=== PATIENT | female | born 1960 | race Caucasian/White ===

== ENCOUNTER 2019-04-27 18:36 | Emergency (ER) | payer OTHER ==
[~2019-04-27] VITALS: Ht 157.5 cm; Wt 85.7 kg
[~2019-04-27 18:36] MED LIST: [UNRECOGNIZED DRUG - OTHER]; [UNRECOGNIZED DRUG - OTHER]; [UNRECOGNIZED DRUG - OTHER]
[2019-04-27 18:40] VITALS: BP 154/86
--- NOTE | 2019-04-27 19:18 | NUR ---
PATIENT AMB TO [facility].
--- NOTE | 2019-04-27 19:25 | NUR ---
BIB SELF REPORTS SUDDEN ONSET OF SHARP ACHING LOWER BACK PAIN STARTING YESTERDAY. DENIES INJURY. STATES SHE DOES NOT HAVE ANY URINARY SYMPTOMS. PATIENT DENIES RESP SYMPTOMS AT THIS TIME. AMB WITH STEADY GAIT.
--- NOTE | 2019-04-27 19:30 | NUR ---
KAREN BARRON WITH PT
[2019-04-27] MEDS ORDERED: KETOROLAC 30 MG/ML VIAL ONE (19:39)
[2019-04-27] MEDS ORDERED: KETOROLAC 30 MG/ML VIAL IM ONE (19:40)
--- NOTE | 2019-04-27 20:13 | NUR ---
PATIENT STATES IMPROVED PAIN AFTER TORADOL.
[2019-04-27 20:33] VITALS: BP 148/80
== END 2019-04-27 20:33 | disposition home or self-care (01) ==
LOC: MED 18:36
DX: S39.012A Strain of muscle, fascia and tendon of lower back, initial encounter (principal); M51.36 Other intervertebral disc degeneration, lumbar region; E11.9 Type 2 diabetes mellitus without complications; K21.9 Gastro-esophageal reflux disease without esophagitis; I10 Essential (primary) hypertension; E78.5 Hyperlipidemia, unspecified; Z90.49 Acquired absence of other specified parts of digestive tract; Z98.890 Other specified postprocedural states; Z79.899 Other long term (current) drug therapy; X58.XXXA Exposure to other specified factors, initial encounter; Y93.89 Activity, other specified; Y92.89 Other specified places as the place of occurrence of the external cause; Y99.8 Other external cause status
CPT/HCPCS: 72110; 81002; 96372; 99283; J1885

== ENCOUNTER 2023-11-21 22:05 | Inpatient (IN) | payer BC, OTHER ==
[~2023-11-21] VITALS: Ht 162.6 cm; Wt 90.7 kg
[2023-11-21 22:11] VITALS: BP 197/94; PULSE 106; RESP 17; TEMP 98; O2SAT 98; O2SAT 99
[2023-11-21 22:34] LABS: BASOPHILS % (AUTO) 0.4 % (0.0-2.0); EOSINOPHILS # (AUTO) 0.3 K/uL (0-0.4); EOSINOPHILS % (AUTO) 3.3 % (0.0-4.0); LYMPHOCYTES # (AUTO) 4.1 K/uL (2.5-16.5); LYMPHOCYTES % (AUTO) 48.2 % (20.5-51.1); MEAN CORPUSCULAR HEMOGLOBIN 29 pg (27-31); MEAN CORPUSCULAR HGB CONC 34 g/dL (33-37); MEAN CORPUSCULAR VOLUME 86.7 fL (80-94); MONOCYTES # (AUTO) 0.6 K/uL (0.8-1.0); MONOCYTES % (AUTO) 7.6 % (1.7-9.3); NEUTROPHILS # (AUTO) 3.4 K/uL (1.8-7.7); NEUTROPHILS % (AUTO) 40.5 % (42.2-75.2); PLATELET COUNT (AUTO) 267 K/uL (140-450); RED BLOOD CELL COUNT(AUTO) 4.84 MIL/uL (4.20-5.40); RED CELL DISTRIBUTION WIDTH 14.2 % (11.6-13.7); WHITE BLOOD COUNT (AUTO) 8.5 K/uL (4.8-10.8)
[2023-11-21] MEDS: PANTOPRAZOLE 40 MG INJ VIAL IVP ONE (22:48)
[2023-11-21 22:52] LABS: INR 0.92 (0.8-1.2); PARTIAL THROMBOPLASTIN TIME 25.6 secs (22-35.6); PROTHROMBIN TIME 9.7 secs (10.8-13.4)
[2023-11-21] MEDS: MORPHINE SULFATE 4 MG/ML SYR IVP ONE (22:52)
[2023-11-21 23:00] LABS: ANION GAP 13.1 (8-16); CALCIUM 9.1 mg/dL (8.5-10.1); CARBON DIOXIDE 27.4 mmol/L (21-32); POTASSIUM 3.5 mmol/L (3.5-5.1)
[2023-11-21 23:02] LABS: ALANINE AMINOTRANSFERASE 22 U/L (12-78); ALBUMIN 3.7 g/dL (3.4-5.0); ALKALINE PHOSPHATASE 98 U/L (50-136); ASPARTATE AMINOTRANSFERASE 3 U/L (15-37); BILIRUBIN,DIRECT 0.1 mg/dL (0.0-0.3); TOTAL BILIRUBIN 0.3 mg/dL (0.0-1.0); TOTAL PROTEIN, SERUM 7.4 g/dL (6.4-8.2)
[2023-11-22] VITALS (7 sets, daily range): BP systolic 130–211; BP diastolic 65–111; PULSE 61–117; RESP 18–20; TEMP 97.3–98.4; O2SAT 95–100
[2023-11-22] MEDS: ASPIRIN 325 MG TAB PO ONE (02:29)
[2023-11-22] MEDS ORDERED: ONDANSETRON 4 MG/2 ML VIAL IVP PRN (02:35)
[2023-11-22] MEDS ORDERED: ALBUTEROL 0.083% 2.5 MG/3 ML NEBU INH PRN (02:35)
[2023-11-22] MEDS ORDERED: hydrALAZINE 20 MG/ML VIAL IVP PRN (02:35)
[2023-11-22] MEDS ORDERED: MORPHINE SULFATE 2 MG/ML SYR IVP PRN (02:35)
[2023-11-22] MEDS ORDERED: METF-1139 PO (03:14)
[2023-11-22] MEDS ORDERED: LOSA-272 PO (03:14)
[2023-11-22] MEDS ORDERED: ATOR10TA PO (03:14)
[2023-11-22] MEDS ORDERED: FAMO-90 PO (03:14)
[2023-11-22] MEDS ORDERED: DEXTROSE 50% 50 ML SYR IVP PRN (09:10)
[2023-11-22] MEDS ORDERED: hePARIN / DEXT 5% PREMIX 250 ML IV SCH (10:35)
[2023-11-22] MEDS ORDERED: HEPARIN PER PHARMACY MC PRN (10:45)
[2023-11-22] MEDS ORDERED: NITROGLYCERIN 0.4 MG TAB SL PRN (10:55)
[2023-11-22] MEDS: LOSARTAN 50 MG TAB PO SCH (11:45)
[2023-11-22] MEDS: ATORVASTATIN 20 MG TAB PO SCH (11:45)
[2023-11-22] MEDS: BLOOD GLUCOSE MONITORING 1 DEV DEV FS SCH (11:51)
[2023-11-22] MEDS: INSULIN LISPRO SLIDING SCALE 100 UNITS/ML VIAL SUBQ PRN (11:52)
[2023-11-22] MEDS: INSULIN LANTUS 100 UNITS/ML 10 ML VIAL SUBQ SCH (12:30)
[2023-11-22] MEDS: PANTOPRAZOLE 40 MG INJ VIAL IVP SCH (12:30)
[2023-11-22] MEDS: hePARIN / DEXT 5% PREMIX 250 ML IV SCH (13:35)
[2023-11-22] MEDS: carvediloL 12.5 MG TAB PO SCH (16:39)
[2023-11-22] MEDS: HYDROcodone/APAP 5/325 MG 1 TAB TAB PO PRN (16:39)
[2023-11-22] MEDS: carvediloL 6.25 MG TAB PO SCH (20:31)
[2023-11-22] MEDS ORDERED: ATORVASTATIN 20 MG TAB PO SCH (21:00)
[2023-11-23] VITALS (7 sets, daily range): BP systolic 91–116; BP diastolic 45–59; PULSE 63–84; RESP 18; TEMP 97.2–99.2; O2SAT 95–96
[2023-11-23 02:01] LABS: INR 1.06 (0.8-1.2); PROTHROMBIN TIME 11.1 secs (10.8-13.4)
[2023-11-23 02:03] LABS: PARTIAL THROMBOPLASTIN TIME 52.1 secs (22-35.6)
[2023-11-23 05:39] LABS: BASOPHILS % (AUTO) 0.2 % (0.0-2.0); EOSINOPHILS # (AUTO) 0.1 K/uL (0-0.4); EOSINOPHILS % (AUTO) 1.9 % (0.0-4.0); HEMATOCRIT 37.8 % (36-48); HEMOGLOBIN 12.8 g/dL (12.0-16.0); LYMPHOCYTES # (AUTO) 2.5 K/uL (2.5-16.5); LYMPHOCYTES % (AUTO) 37.1 % (20.5-51.1); MEAN CORPUSCULAR HEMOGLOBIN 30 pg (27-31); MEAN CORPUSCULAR HGB CONC 34 g/dL (33-37); MEAN CORPUSCULAR VOLUME 87.3 fL (80-94); MONOCYTES # (AUTO) 0.5 K/uL (0.8-1.0); MONOCYTES % (AUTO) 7.9 % (1.7-9.3); NEUTROPHILS # (AUTO) 3.5 K/uL (1.8-7.7); NEUTROPHILS % (AUTO) 52.9 % (42.2-75.2); PLATELET COUNT (AUTO) 236 K/uL (140-450); RED BLOOD CELL COUNT(AUTO) 4.33 MIL/uL (4.20-5.40); RED CELL DISTRIBUTION WIDTH 14.5 % (11.6-13.7); WHITE BLOOD COUNT (AUTO) 6.7 K/uL (4.8-10.8)
[2023-11-23 06:03] LABS: ANION GAP 9.6 (8-16); CALCIUM 8.7 mg/dL (8.5-10.1); CARBON DIOXIDE 29.8 mmol/L (21-32); CREATININE 0.7 mg/dL (0.6-1.3); POTASSIUM 3.4 mmol/L (3.5-5.1)
[2023-11-23] MEDS: ASPIRIN 81 MG TAB.CHEW PO SCH (08:59)
[2023-11-23] MEDS ORDERED: REGADENOSON 0.4 MG/5 ML SYR IV SCH (10:30)
[2023-11-23] MEDS: ACETAMINOPHEN 325 MG TAB PO PRN (12:11)
[2023-11-24] VITALS: BP 129/55; PULSE 69; RESP 18; TEMP 96.5; O2SAT 96
[2023-11-24 04:00] VITALS: BP 112/70; PULSE 66; PULSE 68; RESP 18; TEMP 97; O2SAT 96
[2023-11-24] MEDS: POTASSIUM CHLORIDE 10 MEQ TABER PO ONE (06:16)
[2023-11-24 08:00] VITALS: BP 117/69; PULSE 65; PULSE 69; PULSE 80; PULSE 84; RESP 18; TEMP 96.9; O2SAT 95; O2SAT 96
[2023-11-24 08:04] LABS: BASOPHILS % (AUTO) 0.5 % (0.0-2.0); EOSINOPHILS # (AUTO) 0.2 K/uL (0-0.4); HEMATOCRIT 40.1 % (36-48); HEMOGLOBIN 13.5 g/dL (12.0-16.0); LYMPHOCYTES # (AUTO) 2.1 K/uL (2.5-16.5); MEAN CORPUSCULAR HEMOGLOBIN 29 pg (27-31); MEAN CORPUSCULAR HGB CONC 34 g/dL (33-37); MEAN CORPUSCULAR VOLUME 86.7 fL (80-94); MONOCYTES # (AUTO) 0.4 K/uL (0.8-1.0); MONOCYTES % (AUTO) 6.9 % (1.7-9.3); NEUTROPHILS # (AUTO) 3.2 K/uL (1.8-7.7); NEUTROPHILS % (AUTO) 53.6 % (42.2-75.2); PLATELET COUNT (AUTO) 246 K/uL (140-450); RED BLOOD CELL COUNT(AUTO) 4.63 MIL/uL (4.20-5.40); RED CELL DISTRIBUTION WIDTH 14.4 % (11.6-13.7)
[2023-11-24 08:38] LABS: ALBUMIN 3.2 g/dL (3.4-5.0); ANION GAP 10.6 (8-16); CALCIUM 8.5 mg/dL (8.5-10.1); CARBON DIOXIDE 27.5 mmol/L (21-32); CREATININE 0.7 mg/dL (0.6-1.3); PHOSPHORUS 3.4 mg/dL (2.5-4.9); POTASSIUM 4.1 mmol/L (3.5-5.1); TOTAL BILIRUBIN 0.5 mg/dL (0.0-1.0); TOTAL PROTEIN, SERUM 6.3 g/dL (6.4-8.2)
[2023-11-24 12:00] VITALS: BP 108/53; PULSE 63; PULSE 65; RESP 18; TEMP 97.2; O2SAT 96
[2023-11-24 15:50] VITALS: PULSE 63; RESP 16; O2SAT 96
[2023-11-24] MEDS ORDERED: ASPI81CT95 PO (15:55)
[2023-11-24] MEDS ORDERED: LOSA-272 PO (15:55)
[2023-11-24] MEDS ORDERED: CARV6.252 PO (15:55)
[2023-11-24] MEDS ORDERED: OMEP40EC23 PO (15:55)
[2023-11-24] MEDS ORDERED: LANTUS SUBQ (15:55)
[2023-11-24] MEDS ORDERED: ATOR40TA PO (15:55)
[2023-11-24] MEDS ORDERED: METF-353 PO (16:02)
[2023-11-24 17:28] VITALS: BP 108/53; PULSE 63; RESP 16; TEMP 97.2
== END 2023-11-24 18:50 | disposition home or self-care (01) | DRG 305 ==
LOC: MED 22:05 → MTU 11-22 02:32
PROVIDERS: ADMIT Student in an Organized Health Care Education/Training Program; ATTEND Student in an Organized Health Care Education/Training Program
PROC: 4A02XM4 Measurement of Cardiac Total Activity, External Approach (ICD-10-PCS; principal; 2023-11-23)
PROC: 3E073KZ Introduction of Other Diagnostic Substance into Coronary Artery, Percutaneous Approach (ICD-10-PCS; 2023-11-23)
DX: I16.1 Hypertensive emergency (principal); E78.5 Hyperlipidemia, unspecified; K29.70 Gastritis, unspecified, without bleeding; E11.9 Type 2 diabetes mellitus without complications; I10 Essential (primary) hypertension; Z79.899 Other long term (current) drug therapy; Z90.49 Acquired absence of other specified parts of digestive tract; Z98.891 History of uterine scar from previous surgery; Z79.84 Long term (current) use of oral hypoglycemic drugs
CPT/HCPCS: 36415; 71045; 71275; 80048; 80053; 80076; 82948; 83036; 83735; 83880; 84100; 84484; 85025; 85610; 85730; 87081; 93005; 93017; 96374; 96375; 99285; A9500; A9502; J0360; J1644; J1815; J2270; J2470; J2785; Q0092; Q9967